=== PATIENT | female | born 1990 | race Two or more races ===

== ENCOUNTER 2022-12-19 05:21 | Day surgery (SDC) | payer OTHER ==
[2022-12-18 11:38] VITALS: BMI 25.3
[2022-12-19] MEDS ORDERED: LIDOCAINE HCL 1%, 10 MG/ML (10ML VIAL) MDV ONE (08:55)
[2022-12-19] MEDS ORDERED: BUPIVACAINE HCL/PF 0.5% (5MG/ML) 10 ML VIAL ONE (08:56)
[2022-12-19] MEDS ORDERED: MIDAZOLAM HCL 2 MG/2 ML SINGLE DOSE VIAL ONE (09:05)
[2022-12-19] MEDS ORDERED: PROPOFOL 20 ML ONE (09:05)
[2022-12-19] MEDS ORDERED: ceFAZolin SODIUM 1 GM VIAL IVPB ONE (09:16)
[2022-12-19] MEDS ORDERED: LIDOCAINE HCL 1%, 10 MG/ML (20ML VIAL) INF ONE ×2 (09:21)
[2022-12-19] MEDS ORDERED: BUPIVACAINE HCL/PF 0.5% (5 MG/ML) 30 ML VIAL IJ ONE ×2 (09:21)
[2022-12-19] MEDS ORDERED: ceFAZolin SODIUM 1 GM VIAL ONE (09:23)
[2022-12-19] MEDS ORDERED: ONDANSETRON 4 MG/2 ML VIAL ONE (09:26)
[2022-12-19] MEDS ORDERED: DEXAMETHASONE SOD PHOSPHATE 4 MG/1 ML VIAL ONE (09:26)
[2022-12-19 11:53] VITALS: RESP 20; TEMP 98.6
[2022-12-19 11:56] VITALS: BP 115/72; PULSE 78
== END 2022-12-19 11:14 | disposition home or self-care (01) ==
LOC: JASU-SURG 05:21
PROVIDERS: ATTEND Orthopaedic Surgery
PROC: 0LB50ZZ Excision of Right Lower Arm and Wrist Tendon, Open Approach (ICD-10-PCS; principal; 2022-12-19 09:00)
DX: M67.431 Ganglion, right wrist (principal)
CPT/HCPCS: 81025